=== PATIENT | female | born 1960 | race American Indian/Alaskan Native ===

== ENCOUNTER 2016-06-27 07:46 | Day surgery (SDC) | payer MEDICARE ==
[2016-06-27] MEDS ORDERED: WATER FOR IRRIG STERILE IR ONE (07:51)
[2016-06-27] MEDS ORDERED: NACL 0.9% 1000 ML 1,000 ML IV SCH (09:00)
[2016-06-27] MEDS ORDERED: DIPRIVAN 10 MG/ML IV ONE ×2 (09:51)
--- NOTE | 2016-06-27 10:44 | Operative Report ---
Operative Report Operative Report: Date of procedure: 06/27/2016 Procedure: Colonoscopy. Attending physician: Jaiden Duarte MD Engineering And Development Director: Jaiden Duarte MD Indication: Patient is a 56-year-old female who presented with a history of bloating with intestinal gas and flatulence, history of for fecal incontinence, history of recurrent blood in stool. A colonoscopy is done to evaluate patient so that treatment may be directed based on the findings. Consent: Informed consent was obtained after advising the patient and family regarding nature of this procedure, its indications, potential benefits as well as possible complications including but not limited to bleeding perforation and adverse reaction to medication, infection as well as other cardiopulmonary complications. An informed written and verbal consent was then obtained after due opportunity was provided for questions and answers. Monitoring: Patient was monitored continuously with pulse oximetry and electrocardiographic recordings as well as blood pressure recordings. Vital signs remained stable throughout this procedure with no untoward events. Preoperative assessment: Patient was assessed immediately prior to this procedure for capacity to tolerate monitored anesthesia care and moderate sedation as well as general anesthesia. Patient's ASA classification is 2, Mallampati class is 2, Hyomental distance is 3. Instrument: [employer] video colonoscope Medications: Before, given intravenously in divided doses. For details please refer to anesthesia records. Description of procedure: Patient was placed in the left lateral decubitus position after achieving sedation, a digital rectal examination was performed following which the colonoscope was introduced into the anal verge and advanced to the cecum which was identified by the cecal valve, the appendiceal orifice, as well as by the cecal strap and direct transillumination. The colonoscope was subsequently withdrawn with careful inspection of all mucosal surfaces. Patient tolerated this procedure well and was subsequently taken to the recovery room. The following findings were noted. Findings: The preparation was good . Patient had a few scattered diverticula in the sigmoid colon. These were diminutive. There were no gross mucosal abnormalities seen in the entirety of the colon and rectum. The retroflex view at the anal verge, patient had internal hemorrhoids. Impression: Mild colonic diverticulosis Internal hemorrhoids. Plan: High-fiber diet. Use as needed loperamide. Additional steps may be taken in close outpatient follow-up.
--- NOTE | 2016-06-27 10:45 | Discharge Summary ---
Short Stay Discharge Plan Activity: advance as tolerated Weight Bearing Status: Weight Bear as Tolerated Diet: regular
[2016-06-27 11:17] VITALS: BP 144/88
--- NOTE | 2016-06-27 14:00 | Post Anesthesia Evaluation ---
- Post Anesthesia Evaluation Patient Participated: Yes Airway Patent: Yes Stable Respiratory Function: Yes Nausea/Vomiting: No Temp > 96.8F: Yes Pain Manageable: Yes Adequeate Hydration: Yes Anesthesia Complications: No Block Receding Appropriately: Not Applicable Patient on Ventilator: No
--- NOTE | 2016-06-27 14:00 | Anesthesia Day of Surgery ---
Anesthesia Day of Surgery - Day of Surgery Patient Examined: Yes Patient H&P Reviewed: Yes Patient is NPO: Yes
--- NOTE | 2016-06-27 14:00 | Anesthesia Consultation ---
Anesthesia Consult and Med Hx Date of service: 06/27/16 - Airway Anesthetic Teeth Evaluation: Good ROM Head & Neck: Adequate Mental/Hyoid Distance: Adequate Mallampati Class: Class II Intubation Access Assessment: Probably Good - Pulmonary Exam CTA: Yes - Cardiac Exam Cardiac Exam: RRR - Pre-Operative Health Status ASA Pre-Surgery Classification: ASA2 Proposed Anesthetic Plan: MAC - Pulmonary Hx Smoking: Yes - Cardiovascular System Hx Hypertension: No - Central Nervous System Hx Back Pain: Yes (NECK AND LEFT KNEE PAIN) - Gastrointestinal Hx Gastroesophageal Reflux Disease: Yes
== END 2016-06-27 07:47 | disposition home or self-care (01) ==
LOC: GIO 07:46
PROVIDERS: ATTEND Internal Medicine Gastroenterology
DX: K57.30 Diverticulosis of large intestine without perforation or abscess without bleeding (principal); K64.8 Other hemorrhoids; F41.9 Anxiety disorder, unspecified; M19.90 Unspecified osteoarthritis, unspecified site; F32.9 Major depressive disorder, single episode, unspecified; I10 Essential (primary) hypertension; F17.210 Nicotine dependence, cigarettes, uncomplicated; K21.9 Gastro-esophageal reflux disease without esophagitis
CPT/HCPCS: 45378; J2704; J7030